=== PATIENT | female | born 1985 | race Caucasian/White ===

== ENCOUNTER 2018-10-11 09:20 | Emergency (ER) | payer OTHER, SELFPAY ==
[2018-10-11] VITALS (7 sets, daily range): BP systolic 99–133; BP diastolic 49–71; PULSE 57–81; RESP 13–20; TEMP 36.9; O2SAT 98–100; BMI 21.5
[2018-10-11] MEDS: SODIUM CHLORIDE 0.9% 1,000 ML 1000 ML IV (10:10)
[2018-10-11 10:12] LABS: Add Manual Diff / Slide Review NO; Basophils Absolute Auto 0 /uL (0-100); Basophils Percent Auto 0.2 % (0-2); Eosinophils Absolute Auto 0 /uL (0-450); Eosinophils Percent Auto 0.1 % (2-4); Hematocrit 43.3 % (36-46); Hemoglobin 14.7 g/dL (12.0-16.0); Lymphocytes Absolute Auto 700 /uL (1100-4500); Mean Corpuscular Hemoglobin 29.3 PG (26-34); Mean Corpuscular Volume 86.1 fL (80-100); Monocytes Absolute Auto 200 /uL (0-900); Monocytes Percent Auto 3.2 % (3-14); Neutrophils Absolute Auto 6400 /uL (1500-7000); Neutrophils Percent Auto 86.5 % (50-75); Platelet Count 183 X10^3/uL (150-400); Red Blood Cell Count 5.03 X10^6/uL (4.0-5.2); Red Cell Distribution Width 13.4 % (11.6-14.8); White Blood Cell Count 7.4 X10^3/uL (4.5-11.0)
[2018-10-11 10:13] LABS: Alanine Aminotransferase 14 IU/L (9-52); Albumin 4.7 g/dL (3.5-5.0); Albumin Globulin Ratio 1.5 (1.0-2.8); Alkaline Phosphatase 46 U/L (38-126); Aspartate Aminotransferase 25 IU/L (14-36); BUN Creatinine Ratio 21.3 (6-22); Bilirubin Total 0.9 mg/dL (0.2-1.3); Blood Urea Nitrogen 17 mg/dL (7-17); Calcium 9.4 mg/dL (8.4-10.2); Carbon Dioxide 25 mmol/L (22-32); Chloride 103 mmol/L (98-107); Creatine Kinase 53 U/L (30-135); Estimated Glomerular Filt Rate > 60.0 mL/min (>60); Globulin 3.1 g/dL (1.7-4.1); Glucose 114 mg/dL (70-100); HEMOLYSIS < 15 (0-50); Potassium 4.4 mmol/L (3.4-5.1); Sodium 139 mmol/L (137-145); Total Protein 7.8 g/dL (6.3-8.2)
--- NOTE | 2018-10-11 10:18 | PC.NURSE ---
Pt has had syncopal episodes in the past secondary to pain. Woke up with increased mid back pain (has chronic back pain) and felt as if she was going to pass out while getting out of bed. Got herself back onto the bed and lost consciousness for approx 20 seconds, per .
[2018-10-11 10:27] LABS: Troponin I < 0.012 ng/mL (0.01-0.034)
[2018-10-11 12:10] LABS: Bacteria Urine Occasional (0-1); Culture Indicated Urine Cult Not Indicated; RBC Urine 0-1/HPF (0-5/HPF); Squamous Epithelial Cell Urine 1-5 /HPF (0-5/HPF); WBC Urine 0-1/HPF (0-5/HPF)
--- NOTE | 2018-10-13 09:37 | ED_ITS ---
HPI - Syncope General Chief Complaint: Syncope Stated Complaint: upper back pain,passed out Time Seen by Provider: 10/11/18 10:12 Source: patient and family Mode of arrival: ambulatory Limitations: no limitations History of Present Illness HPI narrative: Patient comes emergency department complaining of a syncopal e pisode about 45 minutes ago after experiencing a sharp mid-upper back pain. Patient states she has had syncopal episodes before with pain or other stimuli, and has also been having this pain for a number of months. She states that normally it is not quite as sharp as it was today. She states she has already been seen for this and has been told it is most likely musculoskeletal. She has not had an MRI. No recent re-injury. Patient does work out, and does some repetitive upper body movements, but has not noticed a specific increase in pain when she is performing these movements. Patient denies fevers. No cough. No shortness of breath. No chest pain. She states she feels fine now. Patient states that she started to feel dizzy and was sitting down when she yelled for her , because she felt that she was going to lose consciousness. Patient's states that he heard the patient calling came running up the stairs and by the time he got there, the patient was lying on the bed unconscious. He states she was unconscious for 30 seconds or less before awakening. No seizure activity noted. Patient has no history of seizures. Related Data Previous Rx's Medication Instructions Recorded ketorolac 10 mg tablet 10 mg PO Q6H PRN 5 Days #20 tab 10/12/18 Allergies Allergy/AdvReac Type Severity Reaction Status Date / Time Sulfa (Sulfonamide Allergy Severe very bad Verified 10/11/18 09:43 Antibiotics) rash [SULFA (SULFONAMIDE ANTIBIOTICS)] penicillin G Allergy Unknown Verified 10/11/18 09:43 [From BICILLIN L-A] Penicillins [PENICILLINS] Allergy Unknown Verified 10/11/18 09:43 Review of Systems Review of Systems ROS Unobtainable: All systems reviewed & are unremarkable except as noted in HPI and below Constitutional Denies chills, Denies fever(s), Denies lethargy and Denies weakness Eyes Denies change in vision, Denies eye discharge, Denies irritation and Denies loss of vision ENT Ears, Nose, Mouth, and Throat: Denies change in voice, Denies neck pain and Denies sore throat Cardiovascular Denies chest pain, Denies irregular heart rhythm, Denies lightheadedness, Denies palpitations, Denies dyspnea, Denies dyspnea on exertion and Denies orthopnea Respiratory Denies cough, Denies dyspnea, Denies dyspnea on exertion and Denies wheezing Gastrointestinal Gastrointestinal: Denies abdominal pain, Denies change in bowel habits, Denies diarrhea, Denies nausea and Denies vomiting Genitourinary Denies hematuria, Denies flank pain, Denies urinary incontinence and Denies urinary urgency Musculoskeletal Reports back pain and Denies neck pain Integumentary/Breasts Denies pruritus, Denies erythema, Denies rash and Denies wounds Neurologic Denies confusion, Denies loss of vision and Denies weakness Psychiatric Denies anxiety, Denies confusion, Denies depression, Denies homicidal ideation and Denies suicidal ideation Endocrine Denies palpitations Hematologic/Lymphatic Denies easy bruising Allergic/Immunologic Denies wheezing [facility] Medical History Healthy adult (Acute) Surgical History History of breast augmentation Family History (Updated 01/14/17 @ 00:00 by Conversion Provider) Grandfather Heart disease Hypertension Grandmother Hypertension Mental health problem Mother Age: 63 Hypertension High cholesterol Social History Smoking Status: Never smoker alcohol intake: never substance use type: does not use Family History Grandfather Heart disease Hypertension Grandmother Hypertension Mental health problem Mother Age: 63 Hypertension High cholesterol Social History Smoking Status: Never smoker alcohol intake: never substance use type: does not use Exam Initial Vital Signs Initial Vital Signs: Vital Signs Temperature 98.4 F 10/11/18 09:43 Pulse Rate 72 10/11/18 09:43 Respiratory Rate 16 10/11/18 09:43 Blood Pressure 133/63 10/11/18 09:43 Pulse Oximetry 100 10/11/18 09:43 Const General: cooperative and well developed Nutritional Appearance: well nourished Orientation: alert, awake, oriented x3 and not confused HENAL Head: normocephalic and atraumatic Ears: external ears normal Nose: external nose normal and No nasal discharge Face and sinus: face symmetric and No dry mucous membranes Mouth: oral mucosae normal and moist mucous membranes Teeth and gingiva: dentition normal Eyes General: appearance normal, both eyes and all related structures Eyelids: eyelids normal Conjunctivae: conjunctivae normal Sclera: sclerae normal Pupils: PERRL EOM: EOM intact bilaterally Neck Neck: normal visual inspection, trachea midline, No lymphadenopathy, No midline deformity and No JVD Lymphatic: No lymphedema Chest Chest: normal inspection of the chest Resp Effort & Inspection: normal respiratory effort, able to speak in complete sentences, no respiratory distress and no use of accessory muscles Auscultation: clear to auscultation bilaterally, no rales, no rhonchi and no wheezes Cardio Rate: regular rate Rhythm: regular rhythm Heart Sounds: no click, no gallops, no murmurs and no rubs Pulses: normal peripheral pulses GI Inspection: non-distended Palpation: soft, no hepatosplenomegaly, No guarding, No pulsatile mass and No tender Auscultation: normal bowel sounds Back/Spine/Pelvis Back: No CVA tenderness Cervical Spine: cervical ROM normal and No pain with cervical ROM Thoracic/Lumbar Spine: thoracic and lumbar spine normal to inspection Other: The patient has mild midline tenderness over the interscapular thoracic spine. No step-off or deformity. Patient has mild tenderness of the soft tissue insertions along the edge of the spine bilaterally at the same level. No swelling. No palpable muscle spasm. Skin General: no rashes or lesions noted, No jaundice and No petechiae Neuro General: alert, oriented x3, gait normal and no focal motor deficits Speech: speech normal Extrem General: full ROM, no clubbing, cyanosis or edema, no pedal edema and no calf tenderness Psych Appearance: well kempt Mental Status: mental status grossly normal Attitude: cooperative Thought Content: normal and suicidality Judgment: judgment good Course Course Narrative: The patient was worked up with labs and EKG, which were unremarkable. The patient had a longstanding history of fainting episodes with painful and other stimuli, and her back pain was also chronic. She did not have any notable triggering event for the worsening of her pain, and did not have any neurologic compromise or fever. As such, I did not feel that further workup of the spinal pain was indicated, in the face of normal labs. Additionally, I felt that the patient most likely had a benign fainting syndrome, given her otherwise healthy state and personal history of fainting on multiple occasions. Patient also did note that her mother has the same issue. I discussed with the patient that she should follow up with her primary care physician, should she begin to have more frequent fainting episodes, and that a Holter monitor study would be a good follow-up to this issue. Patient is feeling better now and is stable for discharge home. We have discussed the usual indications for return. Orders Ordered: Discontinued Medications Sodium Chloride (Normal Saline 0.9%) 1,000 mls @ 1,000 mls/hr IV BOLUS ONE Stop: 10/11/18 10:44 Last Infusion: 10/11/18 11:30 Dose: 0 mls/hr Admin: 10/11/18 10:10 Dose: 1,000 mls/hr MDM - Syncope Medical Records Attestation: I reviewed the patient's medical records. Lab Data Attestation: I reviewed the patient's lab results. Result diagrams: 10/11/18 09:55 10/11/18 09:55 Lab Results 10/11/18 10/11/18 10/11/18 Range/Units 09:55 09:55 11:51 WBC 7.4 (4.5-11.0) X10^3/uL RBC 5.03 (4.0-5.2) X10^6/uL Hgb 14.7 (12.0-16.0) g/dL Hct 43.3 (36-46) % MCV 86.1 (80-100) fL MCH 29.3 (26-34) PG MCHC 34.0 (30-36) % RDW 13.4 (11.6-14.8) % Plt Count 183 (150-400) X10^3/uL Neut % (Auto) 86.5 H (50-75) % Lymph % (Auto) 10.0 L (25-40) % [place] % (Auto) 3.2 (3-14) % Eos % (Auto) 0.1 L (2-4) % Baso % (Auto) 0.2 (0-2) % Neut # (Auto) 6400 (3997-2692) /uL Lymph # (Auto) 700 L (8322-2292) /uL [place] # (Auto) 200 (0-900) /uL Eos # (Auto) 0 (0-450) /uL Baso # (Auto) 0 (0-100) /uL Sodium 139 (137-145) mmol/L Potassium 4.4 (3.4-5.1) mmol/L Chloride 103 (98-107) mmol/L Carbon Dioxide 25 (22-32) mmol/L BUN 17 (7-17) mg/dL Creatinine 0.80 (0.52-1.04) mg/dL Estimated GFR > 60.0 (>60) mL/min BUN/Creatinine Ratio 21.3 (6-22) Glucose 114 H (70-100) mg/dL Calcium 9.4 (8.4-10.2) mg/dL Total Bilirubin 0.9 (0.2-1.3) mg/dL AST 25 (14-36) IU/L ALT 14 (9-52) IU/L Alkaline Phosphatase 46 (38-126) U/L Total Creatine Kinase 53 (30-135) U/L CK-MB (CK-2) TNP CK-MB (CK-2) Rel Index TNP Troponin I < 0.012 (0.01-0.034) ng/mL Total Protein 7.8 (6.3-8.2) g/dL Albumin 4.7 (3.5-5.0) g/dL Globulin 3.1 (1.7-4.1) g/dL Albumin/Globulin Ratio 1.5 (1.0-2.8) Urine RBC 0-1/hpf (0-5/HPF) Urine WBC 0-1/hpf (0-5/HPF) Ur Squamous Epith Cells 1-5 /hpf (0-5/HPF) Urine Bacteria Occasional (0-1) (None) Ur Culture Indicated? Cult not indicated Point of Care Testing Test Results Negative Urine Dip Bedside Urine Glucose Negative Bedside Urine Bilirubin - Negative Bedside Urine Ketone - Negative Urine Specific [place] 1.015 Bedside Urine Occult Blood +/- Bedside Urine pH 7.0 Bedside Urine Protein - Negative Bedside Urine Urobilinogen - Negative Bedside Urine Nitrite - Negative Bedside Urine Leukocytes - Negative Esterase ECG Data Attestation: I personally reviewed and interpreted this ECG as follows: (See below) Interpretation: Twelve lead EKG performed October 11, 2018 at 9:40 a.m., as follows: Regular ventricular rhythm with a rate of 62 beats per minute RI interval 110 milliseconds QRS duration 89 millisecond QTC interval 427 millisecond Normal axis Diffuse, variable ST depression in inferior, anterior, and lateral leads Interpretation: Normal sinus rhythm with short RI interval; moderate ST depression diffusely; no signs of acute ischemia, as interpreted by ED MD. Discharge Plan Departure Patient Disposition: Home Clinical Impression: Vasovagal syncope Back pain Qualifiers: Back pain location: thoracic back pain Chronicity: chronic Back pain laterality: midline Qualified Code(s): M54.6 - Pain in thoracic spine Discharge Date/Time: 10/11/18 12:17 Interventions: ED Discharge Assessment Last Done: 10/11/18 12:15 Instructions: DI for Syncope in Adults (Fainting), DI for Thoracic Back Pain Activity Restrictions/Additional Instructions: Your labs and EKG look good. There is no evidence of an emergent condition at this time. Prescriptions: No Action ketorolac 10 mg tablet 10 mg PO Q6H PRN (Reason: pain) 5 Days Qty: 20 RF: 0 Referrals: Rosa Valle MD [Primary Care Provider] -
== END 2018-10-11 12:17 | disposition home or self-care (01) ==
PROVIDERS: Emergency Provider Emergency Medicine; PCP Family Medicine
DX: R55 Syncope and collapse (principal); M54.6 Pain in thoracic spine
CPT/HCPCS: 36591; 80053; 81003; 81015; 81025; 82550; 84484; 85025; 93005; 96360; 99283

== ENCOUNTER → 2018-10-12 12:47 | Outpatient (CLI) | payer OTHER, SELFPAY ==
--- NOTE | 2018-10-12 12:49 | DI.RAD.S_ITS ---
PROCEDURE: XR THORACIC SPINE 3V INDICATIONS: Mid back pain TECHNIQUE: 2 views of the thoracic spine were acquired. COMPARISON: None. FINDINGS: Bones: Mild dextroscoliosis. No fractures or dislocations. No suspicious bony lesions. 12 pairs of ribs are noted, and appear intact where visualized. Soft tissues: No paravertebral stripe thickening. A nodular density projecting to the right lower lung zone may be an artifact. IMPRESSION: 1. Mild dextroscoliosis. 2. A nodular density in the right lower lung zone may be an artifact. A standard 2-view PA and lateral chest x-ray is recommended for further evaluation. Dictated by: Galo Shannon M.D. on 10/12/2018 at 17:00 Approved by: Galo Shannon M.D. on 10/12/2018 at 17:03
== END ==
PROVIDERS: PCP Family Medicine; Visit Provider Registered Nurse
DX: M54.6 Pain in thoracic spine (principal); M41.9 Scoliosis, unspecified; R91.1 Solitary pulmonary nodule
CPT/HCPCS: 72072

== ENCOUNTER → 2018-10-14 09:07 | Outpatient (CLI) | payer OTHER, SELFPAY ==
--- NOTE | 2018-10-14 09:09 | DI.RAD.S_ITS ---
PROCEDURE: XR CHEST 2V INDICATIONS: Abnormal x-ray finding TECHNIQUE: 2 views of the chest were acquired. COMPARISON: X-ray, thoracic spine. FINDINGS: Surgical changes and devices: None. Lungs and pleura: Lungs are clear. No nodule is seen in the right lower lung zone. No pleural effusions or pneumothorax. Mediastinum: Mediastinal contours are normal. Heart size is normal. Bones and chest wall: No suspicious bony abnormalities. Soft tissues appear unremarkable. IMPRESSION: No acute cardiopulmonary disease. The nodular density in the right lower lung zone seen on the x-ray of the thoracic spine is likely caused by an artifact. Dictated by: Galo Shannon M.D. on 10/14/2018 at 9:29 Approved by: Galo Shannon M.D. on 10/14/2018 at 9:30
== END ==
PROVIDERS: PCP Family Medicine; Visit Provider Registered Nurse
DX: R93.89 Abnormal findings on diagnostic imaging of other specified body structures (principal)
CPT/HCPCS: 71046

== ENCOUNTER → 2019-05-10 16:05 | Outpatient (CLI) | payer OTHER, SELFPAY ==
[2019-05-10 17:33] LABS: Erythrocyte Sedimentation Rate 6 MM/HR (0-20)
[2019-05-10 18:20] LABS: Alanine Aminotransferase 14 IU/L (<35); Albumin 4.4 g/dL (3.5-5.0); Albumin Globulin Ratio 1.6 (1.0-2.8); Alkaline Phosphatase 52 U/L (38-126); Aspartate Aminotransferase 24 IU/L (14-36); BUN Creatinine Ratio 34.3 (6-22); Bilirubin Total 0.5 mg/dL (0.2-1.3); Blood Urea Nitrogen 24 mg/dL (7-17); C-Reactive Protein Quant 0.6 mg/dL (<1.0); Calcium 8.8 mg/dL (8.4-10.2); Carbon Dioxide 26 mmol/L (22-32); Chloride 103 mmol/L (98-107); Estimated Glomerular Filt Rate > 60.0 mL/min (>60); Globulin 2.8 g/dL (1.7-4.1); Glucose 104 mg/dL (70-100); HEMOLYSIS < 15 (0-50); Magnesium 2.1 mg/dL (1.6-2.3); Sodium 140 mmol/L (137-145); Total Protein 7.2 g/dL (6.3-8.2)
[2019-05-10 18:26] LABS: Rheumatoid Factor < 8.6 IU/mL (<12.0)
[2019-05-10 18:51] LABS: TSH w/ Reflex to FT4 2.24 uIU/mL (0.47-4.68)
[2019-05-10 18:54] LABS: Ferritin 11.7 ng/mL (6.27-137)
[2019-05-10 19:25] LABS: Folate 18.6 ng/mL (2.76-20.0); Vitamin B12 771 pg/mL (239-931)
[2019-05-15 15:10] LABS: ANA Screen, IFA POSITIVE (NEGATIVE); ANA Titer 1:40 titer
== END ==
PROVIDERS: PCP Family Medicine; Visit Provider Nurse Practitioner Family
DX: R53.83 Other fatigue (principal); M25.50 Pain in unspecified joint; Z00.00 Encounter for general adult medical examination without abnormal findings
CPT/HCPCS: 36415; 80053; 82607; 82728; 82746; 83735; 84443; 85651; 86038; 86140; 86430